=== PATIENT | female | born 1975 | race Caucasian/White ===

== ENCOUNTER 2024-02-12 16:14 | Outpatient (CLI) | payer BC, SELFPAY ==
--- NOTE | ~2024-02-12 | XR_ITS ---
EXAM: XR cervical spine 4-5V DATE: 02/12/2024 17:01 HISTORY: CERVICAL PAIN . COMPARISON: None available. FINDINGS: Craniocervical association and atlantoaxial joint are aligned. Mild degenerative change at the atlantodental interval. No prevertebral soft tissue swelling. Cervical straightening which can o ccur with positioning or muscle spasm. Minimal retrolistheses at C2-3 through C5-6. Vertebral body he ights are maintained. Degenerative disc disease at all visualized levels, moderate at C4-5 through C6 -7. Mild facet and uncovertebral joint sclerosis/hypertrophy. No significant neural foraminal narrowi ng. IMPRESSION: Minimal multilevel retrolistheses at C2-3 through C5-6. Multilevel degenerative disc dise ase, moderate in the mid and lower cervical spine. Mild multilevel facet arthropathy and uncovertebra l joint osteoarthritis. Reviewed, dictated and finalized at location K. IMPRESSION: Minimal multilevel retrolistheses at C2-3 through C5-6. Multilevel degenerative disc disease, moderate in the mid and lower cervical spine. Mild m ultilevel facet arthropathy and uncovertebral joint osteoarthritis.
== END 2024-02-12 16:15 | disposition home or self-care (01) ==
PROVIDERS: PCP Nurse Practitioner Family; Visit Provider Nurse Practitioner Family
DX: M50.30 Other cervical disc degeneration, unspecified cervical region (principal)
CPT/HCPCS: 72050